=== PATIENT | female | born 1990 | race Caucasian/White ===

== ENCOUNTER 2018-10-07 07:15 | Inpatient (IN) | payer MEDICAID ==
[2018-10-07] MEDS ORDERED: Ondansetron 4 MG/2 ML SDV IV PRN (07:50)
[2018-10-07] MEDS ORDERED: Calcium Carbonate 500 MG Tab.Chew PO PRN (07:50)
[2018-10-07] MEDS ORDERED: Acetaminophen 325 MG Tab PO PRN (07:50)
[2018-10-07] MEDS ORDERED: Sodium Chloride 0.9% 10 ML Syringe FLUSH PRN (07:50)
--- NOTE | 2018-10-07 10:26 | PCM.PNLD ---
Labor Progress Note - VS & Meds Vital Signs: Last Vital Signs Temp 36.7 C 10/07/18 07:35 Pulse 84 10/07/18 07:35 Resp 18 10/07/18 07:35 BP 143/94 H 10/07/18 07:35 Pulse Ox 97 10/07/18 07:35 Active Medications: Current Medications Acetaminophen (Tylenol) 650 mg PO Q4H PRN PRN Reason: Pain (Mild 1-3) and fever Calcium Carbonate/Glycine (Tums) 1,000 mg PO Q2H PRN PRN Reason: Indigestion Ondansetron HCl (Zofran) 4 mg IV Q4H PRN PRN Reason: Nausea/Vomiting Sodium Chloride (Saline Flush) 10 ml FLUSH ASDIRECTED PRN PRN Reason: Keep Vein Open Discontinued Medications Oxytocin/Sodium Chloride (Pitocin In Ns 20 Units/1,000 Ml) 20 unit in 1,000 mls @ 2,997 mls/hr IV ONETIME ONE; Protocol Stop: 10/07/18 10:08 Lidocaine HCl (Xylocaine-Mpf 1%) 20 ml INJECT ONETIME ONE Stop: 10/07/18 09:45 - Uterine Contractions Uterine Monitoring Mode: External [place] Contraction Frequency (min): 2.5-4 Contraction Duration (sec): 40-100 Contraction Intensity: Moderate Uterine Resting Tone: Soft - Monitoring Monitor Mode: External Ultrasound Heart Rate (FHR) Variability: Moderate (6-25 bmp) Accelerations: Present, 15x15 Decelerations: None - Vaginal Exam Dilation (cm): 6-7 Effacement (Percent): 90 Station: -1 Cervical Position: Midposition Sterile Vaginal Exam Performed By: Sandy La Vaginal Exam Comment: bulging bag - Labor Progress (Free Text) Labor Progress: 10/07/2018 Patient progressing nicely Patient requesting nitrous use for AROM but requests AROM While attempting AROM valdivia broke spontaneously-clear SVE-6-7/100/0 FHTs category one Plan- Continue to monitor labor Continue to monitor FHTS Continue nitrous oxide per patient request Plan and anticipate a vaginal delivery
[2018-10-07] MEDS ORDERED: Lanolin 100% Cream 40 GM Tube TOP PRN (11:43)
[2018-10-07] MEDS ORDERED: Ibuprofen 200 MG Tab, 24 Tab Bulk Bottle PO PRN (11:43)
[2018-10-07] MEDS ORDERED: Docusate Sodium 100 MG Cap PO PRN (11:43)
[2018-10-07] MEDS ORDERED: Acetaminophen 325 MG Tab, 50 Tab Bulk Bottle PO PRN (11:43)
[2018-10-07] MEDS ORDERED: Benzocaine 20% Top Spray 56 GM Bottle TOP PRN (11:43)
--- NOTE | 2018-10-07 12:08 | PCM.LDHP ---
L&D History of Present Illness - General Date of Service: 10/07/18 Admit Problem/Dx: Patient Status Order with Admit Dx/Problem 10/07/18 07:50 Patient Status [ADT] Routine 10/07/18 11:43 Patient Status [ADT] Routine Admission Diagnosis/Problem Admission Diagnosis/Problem Vaginal delivery - Related Data Allergies/Adverse Reactions: Allergies Allergy/AdvReac Type Severity Reaction Status Date / Time No Known Allergies Allergy Verified 02/02/16 11:57 Home Medications: Home Meds FLUoxetine HCl [Prozac] 20 mg PO DAILY 02/02/16 [History] Pnv with Ca,No.72/Iron/Fa [Pnv Plus Multivit Tab] 1 tab PO DAILY [History] Ranitidine [Zantac] 150 mg PO DAILY 02/02/16 [History] Past Medical History - Past Health History Medical/Surgical History: Denies Medical/Surgical History Gastrointestinal History: Reports: GERD 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: Neurological History: Reports: Concussion Psychiatric History: Reports: Anxiety, Depression - Infectious Disease History Infectious Disease History: Reports: Chicken Pox - Past Surgical History HEENT Surgical History: Reports: Tonsillectomy, Other (See Below) Female Surgical History: Reports: Other (See Below) 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 Social & Family History - Family History Family Medical History: Noncontributory - Tobacco Use Smoking Status *Q: Never Smoker Second Hand Smoke Exposure: No - Caffeine Use Caffeine Use: Reports: Coffee Caffeine Use Comment: 2 cups/day - Recreational Drug Use Recreational Drug Use: No H&P Review of Systems - Review of Systems: Review Of Systems: See Below General: Reports: No Symptoms HEENT: Reports: No Symptoms Pulmonary: Reports: No Symptoms Cardiovascular: Reports: No Symptoms Gastrointestinal: Reports: No Symptoms Genitourinary: Reports: No Symptoms Musculoskeletal: Reports: No Symptoms Skin: Reports: No Symptoms Psychiatric: Reports: No Symptoms Neurological: Reports: No Symptoms Hematologic/Lymphatic: Reports: No Symptoms Immunologic: Reports: No Symptoms L&D Exam - Exam Exam: See Below - Vital Signs Vital Signs: Last Vital Signs Temp 36.7 C 10/07/18 07:35 Pulse 84 10/07/18 07:35 Resp 18 10/07/18 07:35 BP 143/94 H 10/07/18 07:35 Pulse Ox 97 10/07/18 07:35 Weight: 192 kg - OB Specific Contraction Duration (sec): 40-100 Contraction Frequency (min): 2.5-4 Contraction Intensity: Moderate Movement: Active Heart Tones: Present Heart Rate (FHR) Variability: Moderate (6-25 bmp) Presentation: Vertex - Stafford Score Stafford Score Cervix Position: Anterior Stafford Score Consistency: Soft Stafford Score Effacement: >80% Stafford Score Dilation: 3-4 cm Stafford Score Infant's Station: -1 ,0 Stafford Score Total: 11 - Exam General: Alert, Oriented HEENT: PERRLA, Conjunctiva Clear, EACs Clear, EOMI, Hearing Intact, Mucosa Moist & [place], Nares Patent, Normal Nasal Septum, Posterior Pharynx Clear, Pupils Equal, Pupils Reactive, TMs Clear Neck: Supple, Trachea Midline Lungs: Clear to Auscultation, Normal Respiratory Effort Cardiovascular: Regular Rate, Regular Rhythm GI/Abdominal Exam: Normal Bowel Sounds, Soft, Non-Tender, No Organomegaly, No Distention, No Abnormal Bruit, No Mass, Pelvis Stable Rectal Exam: Normal Exam, Normal Rectal Tone Genitourinary: Normal external exam, Normal bimanual exam, Normal speculum exam Back Exam: Normal Inspection, Full Range of Motion Extremities: Normal Inspection, Normal Range of Motion, Non-Tender, No Pedal Edema, Normal Capillary Refill Skin: Warm, Dry, Intact Neurological: Cranial Nerves Intact, Reflexes Equal Bilateral Psychiatric: Alert, Normal Affect, Normal Mood - Patient Data Lab Results Last 24 hrs: Laboratory Results - last 24 hr 10/07/18 10/07/18 10/07/18 Range/Units 07:25 07:50 07:50 WBC 10.1 (4.5-11.0) K/uL RBC 4.52 (3.30-5.50) M/uL Hgb 13.3 (12.0-15.0) g/dL Hct 39.8 (36.0-48.0) % MCV 88 (80-98) fL MCH 29 (27-31) pg MCHC 33 (32-36) % Plt Count 215 (150-400) K/uL Neut % (Auto) 75 H (36-66) % Lymph % (Auto) 17 L (24-44) % [place] % (Auto) 8 H (2-6) % Eos % (Auto) 1 L (2-4) % Baso % (Auto) 0 (0-1) % Urine Color Yellow Urine Appearance Clear Urine pH 7.0 (4.5-8.0) Ur Specific [place] 1.010 (1.008-1.030) Urine Protein Negative (NEGATIVE) mg/dL Urine Glucose (UA) Normal (NEGATIVE) mg/dL Urine Ketones Negative (NEGATIVE) mg/dL Urine Occult Blood Moderate (NEGATIVE) Urine Nitrite Negative (NEGATIVE) Urine Bilirubin Negative (NEGATIVE) Urine Urobilinogen Normal (NORMAL) mg/dL Ur Leukocyte Esterase Negative (NEGATIVE) Urine RBC 5-10 H (0-5) Urine WBC 0-5 (0-5) Ur Epithelial Cells Few Amorphous Sediment Not seen Urine Bacteria Few Urine Mucus Few Urine Opiates Screen Negative (NEGATIVE) Ur Oxycodone Screen Negative (NEGATIVE) Urine Methadone Screen Negative (NEGATIVE) Ur Propoxyphene Screen Negative (NEGATIVE) Ur Barbiturates Screen Negative (NEGATIVE) Ur Tricyclics Screen Negative (NEGATIVE) Ur Phencyclidine Scrn Negative (NEGATIVE) Ur Amphetamine Screen Negative (NEGATIVE) U Methamphetamines Scrn Negative (NEGATIVE) Urine MDMA Screen Negative (NEGATIVE) U Benzodiazepines Scrn Negative (NEGATIVE) U Cocaine Metab Screen Negative (NEGATIVE) U Marijuana (THC) Screen Negative (NEGATIVE) Result Diagrams: 10/07/18 07:50 - Problem List (1) Labor established SNOMED Code(s): 63499776 ICD Code: SCB6877 - Status: Acute Current Visit: Yes (2) SNOMED Code(s): 39226973 ICD Code: Z34.90 - ENCNTR FOR SUPRVSN OF NORMAL , UNSP, UNSP TRIMESTER Status: Acute Current Visit: Yes Qualifiers: Weeks of gestation: 39 weeks Qualified Code(s): Z3A.39 - 39 weeks gestation of Problem List Initiated/Reviewed/Updated: Yes Orders Last 24hrs: Active Orders 24 hr Category Date Time Status Patient Status [ADT] Routine ADT 10/07/18 07:50 Active Patient Status [ADT] Routine ADT 10/07/18 11:43 Active Ambulate [RC] PER UNIT ROUTINE Care 10/07/18 07:50 Active Communication Order [RC] ASDIRECTED Care 10/07/18 07:50 Active Heart Tones [RC] PER UNIT ROUTINE Care 10/07/18 07:50 Active Non Stress Test [RC] Click to Edit Care 10/07/18 07:50 Active May Shower [RC] ASDIRECTED Care 10/07/18 07:50 Active Notify Provider Vital Signs [RC] PRN Care 10/07/18 07:50 Active Notify Provider [RC] PRN Care 10/07/18 07:50 Active OB Check [OM.PC] Click To Edit Care 10/07/18 07:24 Ordered Up ad Evelyn [RC] ASDIRECTED Care 10/07/18 07:50 Active VTE/DVT Education [RC] Click to Edit Care 10/07/18 07:54 Active Vital Signs [RC] PER UNIT ROUTINE Care 10/07/18 07:50 Active Vital Signs [RC] PFP Care 10/07/18 11:43 Active Regular Diet [DIET] Diet 10/07/18 Breakfast Active Acetaminophen [Tylenol Bulk Bottle] Med 10/07/18 11:43 Ordered 325 mg PO Q4H PRN Acetaminophen [Tylenol] Med 10/07/18 07:50 Active 650 mg PO Q4H PRN Benzocaine [Oraq-P-Mmfvmmv 20% [place]] Med 10/07/18 11:43 Ordered See Dose Instructions TOP Q4H PRN Calcium Carbonate [Tums] Med 10/07/18 07:50 Active 1,000 mg PO Q2H PRN Docusate Sodium [Colace] Med 10/07/18 11:43 Ordered 100 mg PO BID PRN Ibuprofen [Motrin Bulk Bottle] Med 10/07/18 11:43 Ordered 600 mg PO Q6H PRN Lanolin [Lansinoh HPA] Med 10/07/18 11:43 Ordered 1 gm TOP ASDIRECTED PRN Ondansetron [Zofran] Med 10/07/18 07:50 Active 4 mg IV Q4H PRN Sodium Chloride 0.9% [Saline Flush] Med 10/07/18 07:50 Active 10 ml FLUSH ASDIRECTED PRN Assess Lochia [WOMSER] Per Unit Routine Oth 10/07/18 11:43 Ordered Assess Uterine Involution [WOMSER] Per Unit Routine Oth 10/07/18 11:43 Ordered DVT/VTE Prophylaxis Reflex [OM.PC] Routine Oth 10/07/18 07:50 Ordered Ice Therapy [OM.PC] Per Unit Routine Oth 10/07/18 11:55 Ordered Perineal Care [OM.PC] Per Unit Routine Ot 10/07/18 11:54 Ordered Saline Lock Insert [OM.PC] Routine Ot 10/07/18 07:50 Ordered Sitz Bath [OM.PC] Per Unit Routine Oth 10/07/18 11:54 Ordered Resuscitation Status Routine Resus Stat 10/07/18 07:50 Ordered Medication Orders Acetaminophen (Tylenol) 650 mg PO Q4H PRN PRN Reason: Pain (Mild 1-3) and fever Acetaminophen (Tylenol Bulk Bottle) 325 mg PO Q4H PRN PRN Reason: Pain Benzocaine (Vkul-J-Jdvkfia 20% [place]) 0 gm TOP Q4H PRN PRN Reason: Perineal Comfort Measure Calcium Carbonate/Glycine (Tums) 1,000 mg PO Q2H PRN PRN Reason: Indigestion Docusate Sodium (Colace) 100 mg PO BID PRN PRN Reason: Constipation Emollient Ointment (Lansinoh Hpa) 1 gm TOP ASDIRECTED PRN PRN Reason: Sore Nipples Ibuprofen (Motrin Bulk Bottle) 600 mg PO Q6H PRN PRN Reason: Pain Ondansetron HCl (Zofran) 4 mg IV Q4H PRN PRN Reason: Nausea/Vomiting Sodium Chloride (Saline Flush) 10 ml FLUSH ASDIRECTED PRN PRN Reason: Keep Vein Open Assessment/Plan Comment:: 10/07/2018 28 yo here at 39 5/7 weeks gestation Believes contractions started around 0100 and got progressively stronger SVE now-4-/-1 Bulgy bag of valdivia FHTs category one Contractions regular and strong Patient desires natural and currently no pain medications Labs-O positive, HIV neg, Hep B neg, Hep C neg, HIV neg, RPR nonreactive, GBS negative Plan- Continue to monitor labor Continue to monitor FHTs Patient can do tub bath, ball, or position change for comfort Plan and anticipate a vaginal delivery
--- NOTE | 2018-10-07 12:14 | PCM.DEL ---
L & D Note - General Info Date of Service: 10/07/18 Mother's Due Date: 10/09/18 - Delivery Note Labor: Spontaneous Delivery Outcome: Livebirth Infant Delivery Method: Spontaneous Vaginal Delivery-Single Infant Delivery Mode: Spontaneous Presentation: Left Occiput Anterior (GALE) Nuchal Cord: None Anesthesia Type: Nitrous Oxide Anesthetic: Lidocaine (Xylocaine) 1% Plain Episiotomy Type: None Laceration: 1st Degree, Perineal Suture type: Vicryl Suture size: 3-0 Placenta: Intact, Spontaneous Cord: 3 Vessels Estimated Blood Loss: 350 [place]: Bulb Syringe, Stimulated, Warmed, [place] Used Score 1 min: 8 Score 5 min: 9 Second Stage Interventions: Reports: Second Nurse Assessed Progress of Descent, Second Nurse Reviewed Contraction Pattern, Encouragement Given, Pushing Effectively, Pushing, Left Side, Pushing, McRobert's Position, Pushing, Stirrups /Leg Supports Delivery Comments (Free Text/Narrative):: 10/07/2018 28 yo delivered a viable male at 39 5/7 gestational weeks normal spontaneous vaginal delivery at 1054 on 10/07/2018 in GALE position over intact perineum. Mother progressed nicely and pushed with small amount of nitrous use and quickly moved baby down the canal. then delivered and was placed on prewarmed blanket on mothers abdomen. Delayed cord clamping was done for approximately 90 seconds. was dried, stimulated, and warmed. Cord was then double clamped and cut by father of . APGARS-8/9, weight-7lbs 2.5oz, length-19.5, began to pink in color and cry vigorously. Small first degree perineal laceration noted and repaired in usual fashion, no other lacerations noted of perineum, labia, vagina, or cervix. Placenta delivered more schultz side, but intake and spontaneous. EBL-350ml. Infant now remains skin to skin with mother and both are stable in labor and delivery room. Stages of labor- 1st [id number] 2nd [id number] 3rd [id number] - General Info Date of Service: 10/07/18 Functional Status: Reports: Pain Controlled - Review of Systems General: Reports: No Symptoms HEENT: Reports: No Symptoms Pulmonary: Reports: No Symptoms Cardiovascular: Reports: No Symptoms Gastrointestinal: Reports: No Symptoms Genitourinary: Reports: No Symptoms Musculoskeletal: Reports: No Symptoms Skin: Reports: No Symptoms Neurological: Reports: No Symptoms Psychiatric: Reports: No Symptoms - Patient Data Vitals - Most Recent: Last Vital Signs Temp 36.7 C 10/07/18 07:35 Pulse 84 10/07/18 07:35 Resp 18 10/07/18 07:35 BP 143/94 H 10/07/18 07:35 Pulse Ox 97 10/07/18 07:35 Weight - Most Recent: 192 kg Lab Results Last 24 Hours: Laboratory Results - last 24 hr 10/07/18 10/07/18 10/07/18 Range/Units 07:25 07:50 07:50 WBC 10.1 (4.5-11.0) K/uL RBC 4.52 (3.30-5.50) M/uL Hgb 13.3 (12.0-15.0) g/dL Hct 39.8 (36.0-48.0) % MCV 88 (80-98) fL MCH 29 (27-31) pg MCHC 33 (32-36) % Plt Count 215 (150-400) K/uL Neut % (Auto) 75 H (36-66) % Lymph % (Auto) 17 L (24-44) % [place] % (Auto) 8 H (2-6) % Eos % (Auto) 1 L (2-4) % Baso % (Auto) 0 (0-1) % Urine Color Yellow Urine Appearance Clear Urine pH 7.0 (4.5-8.0) Ur Specific [place] 1.010 (1.008-1.030) Urine Protein Negative (NEGATIVE) mg/dL Urine Glucose (UA) Normal (NEGATIVE) mg/dL Urine Ketones Negative (NEGATIVE) mg/dL Urine Occult Blood Moderate (NEGATIVE) Urine Nitrite Negative (NEGATIVE) Urine Bilirubin Negative (NEGATIVE) Urine Urobilinogen Normal (NORMAL) mg/dL Ur Leukocyte Esterase Negative (NEGATIVE) Urine RBC 5-10 H (0-5) Urine WBC 0-5 (0-5) Ur Epithelial Cells Few Amorphous Sediment Not seen Urine Bacteria Few Urine Mucus Few Urine Opiates Screen Negative (NEGATIVE) Ur Oxycodone Screen Negative (NEGATIVE) Urine Methadone Screen Negative (NEGATIVE) Ur Propoxyphene Screen Negative (NEGATIVE) Ur Barbiturates Screen Negative (NEGATIVE) Ur Tricyclics Screen Negative (NEGATIVE) Ur Phencyclidine Scrn Negative (NEGATIVE) Ur Amphetamine Screen Negative (NEGATIVE) U Methamphetamines Scrn Negative (NEGATIVE) Urine MDMA Screen Negative (NEGATIVE) U Benzodiazepines Scrn Negative (NEGATIVE) U Cocaine Metab Screen Negative (NEGATIVE) U Marijuana (THC) Screen Negative (NEGATIVE) Med Orders - Current: Current Medications Acetaminophen (Tylenol) 650 mg PO Q4H PRN PRN Reason: Pain (Mild 1-3) and fever Acetaminophen (Tylenol Bulk Bottle) 325 mg PO Q4H PRN PRN Reason: Pain Benzocaine (Eyni-S-Cdjwtpn 20% [place]) 0 gm TOP Q4H PRN PRN Reason: Perineal Comfort Measure Calcium Carbonate/Glycine (Tums) 1,000 mg PO Q2H PRN PRN Reason: Indigestion Docusate Sodium (Colace) 100 mg PO BID PRN PRN Reason: Constipation Emollient Ointment (Lansinoh Hpa) 1 gm TOP ASDIRECTED PRN PRN Reason: Sore Nipples Ibuprofen (Motrin Bulk Bottle) 600 mg PO Q6H PRN PRN Reason: Pain Ondansetron HCl (Zofran) 4 mg IV Q4H PRN PRN Reason: Nausea/Vomiting Sodium Chloride (Saline Flush) 10 ml FLUSH ASDIRECTED PRN PRN Reason: Keep Vein Open Discontinued Medications Oxytocin/Sodium Chloride (Pitocin In Ns 20 Units/1,000 Ml) 20 unit in 1,000 mls @ 2,997 mls/hr IV ONETIME ONE; Protocol Stop: 10/07/18 10:08 Lidocaine HCl (Xylocaine-Mpf 1%) 20 ml INJECT ONETIME ONE Stop: 10/07/18 09:45 - Exam General: Alert, Oriented, Cooperative HEENT: Pupils Equal, Pupils Reactive, EOMI, Mucous Membr. Moist/[place] Neck: Supple Lungs: Clear to Auscultation, Normal Respiratory Effort Cardiovascular: Regular Rate, Regular Rhythm GI/Abdominal Exam: Normal Bowel Sounds, Soft, Non-Tender, No Organomegaly, No Distention, No Abnormal Bruit, No Mass, Pelvis Stable (Female) Exam: Normal External Exam, Normal Speculum Exam, Normal Bimanual Exam, Enlarged Uterus, Vaginal Bleeding Back Exam: Normal Inspection, Full Range of Motion Extremities: Normal Inspection, Normal Range of Motion, Non-Tender, No Pedal Edema, Normal Capillary Refill Skin: Warm, Dry, Intact Wound/Incisions: Healing Well Neurological: No New Focal Deficit Psy/Mental Status: Alert, Normal Affect, Normal Mood - Problem List & Annotations (1) Labor established SNOMED Code(s): 88982806 Code(s): IJC6662 - Status: Acute Current Visit: Yes (2) SNOMED Code(s): 32592439 Code(s): Z34.90 - ENCNTR FOR SUPRVSN OF NORMAL , UNSP, UNSP TRIMESTER Status: Acute Current Visit: Yes Qualifiers: Weeks of gestation: 39 weeks Qualified Code(s): Z3A.39 - 39 weeks gestation of (3) Vaginal delivery SNOMED Code(s): 422417275 Code(s): O80 - ENCOUNTER FOR FULL-TERM UNCOMPLICATED DELIVERY Status: Acute Current Visit: Yes (4) Perineal laceration SNOMED Code(s): 938306834 Code(s): SIO1893 - Status: Acute Current Visit: Yes (5) (infant) SNOMED Code(s): 633836632 Code(s): Z78.9 - OTHER SPECIFIED HEALTH STATUS Status: Acute Current Visit: Yes - Problem List Review Problem List Initiated/Reviewed/Updated: Yes - My Orders Last 24 Hours: My Active Orders 10/07/18 07:24 OB Check [OM.PC] Click To Edit 10/07/18 07:50 Patient Status [ADT] Routine Ambulate [RC] PER UNIT ROUTINE Communication Order [RC] ASDIRECTED Heart Tones [RC] PER UNIT ROUTINE Non Stress Test [RC] Click to Edit May Shower [RC] ASDIRECTED Notify Provider Vital Signs [RC] PRN Notify Provider [RC] PRN Up ad Evelyn [RC] ASDIRECTED Vital Signs [RC] PER UNIT ROUTINE Acetaminophen [Tylenol] 650 mg PO Q4H PRN Calcium Carbonate [Tums] 1,000 mg PO Q2H PRN Ondansetron [Zofran] 4 mg IV Q4H PRN Sodium Chloride 0.9% [Saline Flush] 10 ml FLUSH ASDIRECTED PRN DVT/VTE Prophylaxis Reflex [OM.PC] Routine Saline Lock Insert [OM.PC] Routine Resuscitation Status Routine 10/07/18 07:54 VTE/DVT Education [RC] Click to Edit 10/07/18 11:43 Patient Status [ADT] Routine Vital Signs [RC] PFP Acetaminophen [Tylenol Bulk Bottle] 325 mg PO Q4H PRN Benzocaine [Gxax-H-Agxeisw 20% [place]] See Dose Instructions TOP Q4H PRN Docusate Sodium [Colace] 100 mg PO BID PRN Ibuprofen [Motrin Bulk Bottle] 600 mg PO Q6H PRN Lanolin [Lansinoh HPA] 1 gm TOP ASDIRECTED PRN Assess Lochia [WOMSER] Per Unit Routine Assess Uterine Involution [WOMSER] Per Unit Routine 10/07/18 11:54 Perineal Care [OM.PC] Per Unit Routine Sitz Bath [OM.PC] Per Unit Routine 10/07/18 11:55 Ice Therapy [OM.PC] Per Unit Routine 10/07/18 Breakfast Regular Diet [DIET] - Assessment Assessment:: 10/07/2018 28 yo G2 now P2 delivered without complications 1st degree perineal repaired History of depression - Plan Plan:: 10/07/2018 28 yo here at 39 5/7 weeks gestation Believes contractions started around 0100 and got progressively stronger SVE now--/-1 Bulgy bag of valdivia FHTs category one Contractions regular and strong Patient desires natural and currently no pain medications Labs-O positive, HIV neg, Hep B neg, Hep C neg, HIV neg, RPR nonreactive, GBS negative Plan- Continue to monitor labor Continue to monitor FHTs Patient can do tub bath, ball, or position change for comfort Plan and anticipate a vaginal delivery 10/07/2018 Routine cares Encourage and support Good perineal care Discharge in 24-48hrs
[2018-10-07] MEDS ORDERED: Witch Hazel Medicated Pads 100/Jar TOP PRN (14:58)
--- NOTE | 2018-10-08 08:46 | PCM.PNPP ---
- General Info Date of Service: 10/08/18 (ppd 1) Admission Dx/Problem (Free Text): Patient Status Order with Admit Dx/Problem 10/07/18 07:50 Patient Status [ADT] Routine 10/07/18 11:43 Patient Status [ADT] Routine Admission Diagnosis/Problem Admission Diagnosis/Problem Vaginal delivery Functional Status: Reports: Pain Controlled - Review of Systems General: Reports: No Symptoms HEENT: Reports: No Symptoms Pulmonary: Reports: No Symptoms Cardiovascular: Reports: No Symptoms Gastrointestinal: Reports: No Symptoms Genitourinary: Reports: No Symptoms Musculoskeletal: Reports: No Symptoms Skin: Reports: No Symptoms Neurological: Reports: No Symptoms Psychiatric: Reports: No Symptoms - General Info Date of Service: 10/08/18 - Patient Data Vital Signs - Most Recent: Last Vital Signs Temp 97.5 F 10/08/18 05:09 Pulse 89 10/08/18 05:09 Resp 18 10/08/18 05:09 BP 119/64 10/08/18 05:09 Pulse Ox 97 10/08/18 05:09 Weight - Most Recent: 423 lb 4.6 oz I&O - Last 24 Hours: Intake & Output 10/07/18 10/08/18 10/08/18 22:59 06:59 14:59 Intake Total 600 500 700 Balance 600 500 700 Lab Results - Last 24 Hours: Laboratory Results - last 24 hr 10/08/18 Range/Units 05:50 WBC 11.6 H (4.5-11.0) K/uL RBC 4.32 (3.30-5.50) M/uL Hgb 12.8 (12.0-15.0) g/dL Hct 38.4 (36.0-48.0) % MCV 89 (80-98) fL MCH 30 (27-31) pg MCHC 33 (32-36) % Plt Count 181 (150-400) K/uL Neut % (Auto) 76 H (36-66) % Lymph % (Auto) 16 L (24-44) % [place] % (Auto) 8 H (2-6) % Eos % (Auto) 1 L (2-4) % Baso % (Auto) 0 (0-1) % Med Orders - Current: Current Medications Acetaminophen (Tylenol) 650 mg PO Q4H PRN PRN Reason: Pain (Mild 1-3) and fever Acetaminophen (Tylenol Bulk Bottle) 325 mg PO Q4H PRN PRN Reason: Pain Last Admin: 10/07/18 14:52 Dose: 1 bottle Benzocaine (Ever-K-Xxlrmae 20% [place]) 0 gm TOP Q4H PRN PRN Reason: Perineal Comfort Measure Last Admin: 10/07/18 14:52 Dose: 1 bottle Calcium Carbonate/Glycine (Tums) 1,000 mg PO Q2H PRN PRN Reason: Indigestion Docusate Sodium (Colace) 100 mg PO BID PRN PRN Reason: Constipation Emollient Ointment (Lansinoh Hpa) 1 gm TOP ASDIRECTED PRN PRN Reason: Sore Nipples Last Admin: 10/07/18 15:47 Dose: 1 applic Ibuprofen (Motrin Bulk Bottle) 600 mg PO Q6H PRN PRN Reason: Pain Last Admin: 10/07/18 14:50 Dose: 1 bottle Ondansetron HCl (Zofran) 4 mg IV Q4H PRN PRN Reason: Nausea/Vomiting Sodium Chloride (Saline Flush) 10 ml FLUSH ASDIRECTED PRN PRN Reason: Keep Vein Open Witch Annie (Tucks) 1 pad TOP ASDIRECTED PRN PRN Reason: Other Last Admin: 10/07/18 15:47 Dose: 1 container Discontinued Medications Oxytocin/Sodium Chloride (Pitocin In Ns 20 Units/1,000 Ml) 20 unit in 1,000 mls @ 2,997 mls/hr IV ONETIME ONE; Protocol Stop: 10/07/18 10:08 Last Admin: 10/07/18 16:42 Dose: 250 mls/hr Lidocaine HCl (Xylocaine-Mpf 1%) 20 ml INJECT ONETIME ONE Stop: 10/07/18 09:45 Last Admin: 10/07/18 16:42 Dose: 15 ml - Interaction Infant Disposition, : [place] in Room with Family Interaction: Holding Infant Infant Feeding: Breastfed ; Nursed Well Support Person: - Recovery Exam Fundal Tone: Firm Fundal Level: 1 Fingerbreadths Below Umbilicus Fundal Placement: Midline Lochia Amount: Moderate Lochia Color: Rubra/Red Perineum Description: Intact, Minimal Bruising/Swelling Episiotomy/Laceration: Approximated Bladder Status: Voiding Urinary Elimination: Voided - Exam General: Alert, Oriented HEENT: Pupils Equal, Pupils Reactive, EOMI Neck: Supple Lungs: Clear to Auscultation, Normal Respiratory Effort Cardiovascular: Regular Rate, Regular Rhythm GI/Abdominal Exam: Normal Bowel Sounds, Soft, Non-Tender Extremities: Normal Inspection, No Pedal Edema, Normal Capillary Refill Skin: Warm, Dry, Intact Wound/Incisions: Healing Well Neurological: No New Focal Deficit Psy/Mental Status: Alert, Normal Affect, Normal Mood - Problem List Review Problem List Initiated/Reviewed/Updated: Yes - Assessment Assessment:: 10/07/2018 28 yo G2 now P2 delivered without complications 1st degree perineal repaired History of depression 10/08/18 without complications HGB 12.8 without problems mood happy Flow light and no pain from repair, slight swelling looks good voiding without problem - Plan Plan:: 10/07/2018 28 yo here at 39 5/7 weeks gestation Believes contractions started around 0100 and got progressively stronger SVE now-/-1 Bulgy bag of valdivia FHTs category one Contractions regular and strong Patient desires natural and currently no pain medications Labs-O positive, HIV neg, Hep B neg, Hep C neg, HIV neg, RPR nonreactive, GBS negative Plan- Continue to monitor labor Continue to monitor FHTs Patient can do tub bath, ball, or position change for comfort Plan and anticipate a vaginal delivery 10/07/2018 Routine cares Encourage and support Good perineal care Discharge in 24-48hrs 10/08/18 Continue routine cares May go home later today after baby has had screening tests and circumcision 24-48 hour stay
[2018-10-08 08:55] VITALS: BP 120/76
[2018-10-08] MEDS ORDERED: Lactated Ringers 1,000 ML IV SCH (14:30)
== END 2018-10-08 17:30 | disposition home or self-care (01) | DRG 807 ==
LOC: JP.OBCHECK 07:15 → JP.OB 07:57 → OBSVTOIN 10:54 → JP.OB 10:54 → JP.MS 13:06
PROVIDERS: ADMIT Advanced Practice Midwife; ATTEND Advanced Practice Midwife
PROC: 10E0XZZ Delivery of Products of Conception, External Approach (ICD-10-PCS; principal; 2018-10-07)
PROC: 0HQ9XZZ Repair Perineum Skin, External Approach (ICD-10-PCS; principal; 2018-10-07)
DX: O99.344 Other mental disorders complicating childbirth (principal); Z37.0 Single live birth; O70.0 First degree perineal laceration during delivery; Z3A.39 39 weeks gestation of pregnancy; F41.9 Anxiety disorder, unspecified; F32.9 Major depressive disorder, single episode, unspecified; O99.62 Diseases of the digestive system complicating childbirth; K21.9 Gastro-esophageal reflux disease without esophagitis
CPT/HCPCS: 36415; 59409; 80305-QW; 81001; 85025; 99211; A9270-GY; J2001; J2590